=== PATIENT | male | born 1965 | race Caucasian/White ===

== ENCOUNTER 2017-04-08 11:53 | Observation (INO) | payer OTHER ==
--- NOTE | 2017-04-08 12:15 | C.PDOC ---
History Of Present Illness 51-year-old male, presents to the emergency department via EMS with complaints of public intoxication. Time Seen by Provider: 04/08/17 12:03 Chief Complaint (Nursing): Substance Abuse History Per: EMS History/Exam Limitations: intoxication Past Medical History Reviewed: Historical Data, Nursing Documentation, Vital Signs Vital Signs: Last Vital Signs Temp 98.6 F 04/08/17 14:40 Pulse 108 H 04/08/17 14:40 Resp 18 04/08/17 14:40 BP 137/91 H 04/08/17 14:40 Pulse Ox 97 04/08/17 14:40 Family History: States: No Known Family Hx - Social History Hx Tobacco Use: No Hx Alcohol Use: Yes Hx Substance Use: No - Immunization History Hx Tetanus Toxoid Vaccination: No Hx Influenza Vaccination: No Hx Pneumococcal Vaccination: No Review Of Systems Review Of Systems: ROS cannot be obtained secondary to pt's inabilty to answer questions. (intox) Gastrointestinal: Negative for: Vomiting Psych: Negative for: Psychosis, Suicidal ideation, Withdrawal Physical Exam - Physical Exam Appears: Non-toxic, No Acute Distress, Other (CALM. NO ACUTE SIGNS OR SX OF WITHDRAWAL. PT IS INTOXICATED. ETOH ON BREATH) Neck: Normal ROM Chest: Symmetrical Respiratory: No Accessory Muscle Use Extremity: Normal ROM Gait: Unsteady (ETOH) ED Course And Treatment O2 Sat by Pulse Oximetry: 108 ED OBSERVATION Discharge: Yes Date of observation admission: 04/08/17 Time of observation admission: 12:00 - Observation admission statement Patient is being placed in observation because:: INTOX - Goals of Observation Goals of observation are:: SOBRIETY - Progress Note Progress Note: 04/08/17 16:41 CLEAR SPEECH AND THOUGHT, STEADY GAIT. N OS/S ACUTE INTOX Disposition Counseled Patient/Family Regarding: Diagnosis, Need For Followup - Disposition Disposition: HOME/ ROUTINE Disposition Time: 16:41 Condition: IMPROVED - Clinical Impression Clinical Impression: Alcohol intoxication - Scribe Statement The provider has reviewed the documentation as recorded by the Renato Gilmore All medical record entries made by the Scribe were at my direction and personally dictated by me. I have reviewed the chart and agree that the record accurately reflects my personal performance of the history, physical exam, medical decision making, and the department course for this patient. I have also personally directed, reviewed, and agree with the discharge instructions and disposition.
[2017-04-08 14:41] VITALS: RESP 18
[2017-04-08 16:41] VITALS: O2SAT 108
[2017-04-08 16:47] VITALS: PULSE 78; TEMP 97.8
[2017-04-08 16:48] VITALS: BP 130/94
== END 2017-04-08 16:41 | disposition home or self-care (01) ==
LOC: C.ER 11:53 → C.9OBSV 12:00
PROVIDERS: ADMIT Emergency Medicine; ATTEND Emergency Medicine
DX: F10.229 Alcohol dependence with intoxication, unspecified (principal)
CPT/HCPCS: 99285; G0378

== ENCOUNTER 2018-01-23 13:48 | Emergency (ER) | payer SELFPAY ==
--- NOTE | 2018-01-23 19:45 | C.PDOC ---
History Of Present Illness 52 year old male is brought to the ED by EMS for evaluation of alcohol intoxication for an unknown duration. Patient admits to heavy alcohol consumption today. Patient admits he usually drinks an unknown quantity of beer on a daily basis and is unable to recall when he had his last beer today. Patient has never undergone detox and expresses interest today. He has no acute complaints at this time. Chief Complaint (Nursing): Substance Abuse History Per: Patient, EMS History/Exam Limitations: intoxication Onset/Duration Of Symptoms: Hrs Current Symptoms Are (Timing): Still Present Suicide/Self Injury Attempted (Context): None Modifying Factor(s): Alcohol Associated Symptoms: denies: Suicidal Thoughts, Suicidal Plan Involuntary Hold By: None Recent travel outside of the [place]: No Additional History Per: Patient Past Medical History Reviewed: Historical Data, Nursing Documentation, Vital Signs Vital Signs: Last Vital Signs Temp 98.3 F 01/23/18 19:57 Pulse 92 H 01/23/18 19:57 Resp 18 01/23/18 19:57 BP 142/89 01/23/18 19:57 Pulse Ox 99 01/23/18 23:04 - Medical History PMH: No Chronic Diseases Surgical History: No Surg Hx Family History: States: Unknown Family Hx - Social History Hx Tobacco Use: No Hx Alcohol Use: Yes Hx Substance Use: No - Immunization History Hx Tetanus Toxoid Vaccination: No Hx Influenza Vaccination: No Hx Pneumococcal Vaccination: No Review Of Systems Psych: Positive for: Other (alcohol intoxication ) Physical Exam - Physical Exam Appears: Non-toxic, No Acute Distress, Other (poor hygiene) Skin: Normal Color, Warm, Dry, Other (ruby complexion) Head: Atraumatic, Normacephalic Eye(s): bilateral: Normal Inspection Oral Mucosa: Moist, Other (alcohol on breath ) Neck: Supple Chest: Symmetrical, No Deformity, No Tenderness Cardiovascular: Rhythm Regular, No Murmur Respiratory: Normal Breath Sounds, No Rales, No Rhonchi, No Wheezing Extremity: Normal ROM, Capillary Refill (less than 2 seconds ) Neurological/Psych: No Normal Speech (slurred), No Other (responsive to verbal commands ) ED Course And Treatment O2 Sat by Pulse Oximetry: 99 (on RA) Pulse Ox Interpretation: Normal Medical Decision Making Medical Decision Making: Progress: Patient is informed about the unavailability of detox beds at this time. On re-evaluation, patient is able to stand and ambulate down the ER douglas with a steady gait. Patient is clinically sober and is stable for discharge. long term care social worker has provided patient with a list of detox centers for further inquiry. Advised to return to the ED if symptoms worsen. Disposition - Disposition Referrals: Alcoholics Anonymous [Outside] Disposition: HOME/ ROUTINE Disposition Time: 05:55 Condition: GOOD Instructions: Alcohol Use - When Is Drinking a Problem? Forms: Gen Discharge Inst Yi, [facility] (Armenian) Print Language: ISRAELI - Clinical Impression Clinical Impression: Alcohol intoxication - Scribe Statement The provider has reviewed the documentation as recorded by the Scribe (Shavonne Hernandez) Provider Attestation: All medical record entries made by the Scribe were at my direction and personally dictated by me. I have reviewed the chart and agree that the record accurately reflects my personal performance of the history, physical exam, medical decision making, and the department course for this patient. I have also personally directed, reviewed, and agree with the discharge instructions and disposition.
[2018-01-23 19:57] VITALS: BP 142/89; PULSE 92; RESP 18; TEMP 98.3
[2018-01-23 20:58] VITALS: O2SAT 99
== END 2018-01-23 19:57 | disposition home or self-care (01) ==
LOC: C.ER 13:48
DX: F10.129 Alcohol abuse with intoxication, unspecified (principal); Y90.9 Presence of alcohol in blood, level not specified

== ENCOUNTER 2018-06-26 19:52 | Emergency (ER) | payer SELFPAY ==
[2018-06-26 20:00] VITALS: TEMP 99.2; O2SAT 96
--- NOTE | 2018-06-26 21:16 | C.PDOC ---
History Of Present Illness 52 y/o male brought in by EMS [place]. Patient admits to alcohol use today. Denies any somatic complaints. No further history obtained due to patients intoxication. Time Seen by Provider: 06/26/18 20:00 Chief Complaint (Nursing): Substance Abuse History Per: Patient History/Exam Limitations: intoxication Onset/Duration Of Symptoms: Hrs Current Symptoms Are (Timing): Still Present Modifying Factor(s): Alcohol Involuntary Hold By: None Additional History Per: EMS Past Medical History Reviewed: Historical Data, Nursing Documentation, Vital Signs Vital Signs: Last Vital Signs Temp 99.2 F 06/26/18 20:03 Pulse 103 H 06/26/18 20:03 Resp 20 06/26/18 20:03 BP 111/65 06/26/18 20:03 Pulse Ox 96 06/27/18 00:03 - Medical History PMH: Denies: Diabetes, Hepatitis, HIV, HTN, Seizures, Sexually Transmitted Disease Family History: States: Unknown Family Hx - Social History Hx Tobacco Use: No Hx Alcohol Use: Yes Hx Substance Use: No - Immunization History Hx Tetanus Toxoid Vaccination: No Hx Influenza Vaccination: No Hx Pneumococcal Vaccination: No Review Of Systems Review Of Systems: ROS cannot be obtained secondary to pt's inabilty to answer questions. Physical Exam - Physical Exam Appears: Non-toxic, No Acute Distress, Unkempt, Other (Smells of alcohol) Skin: Normal Color, Warm, Dry Head: Atraumatic, Normacephalic Eye(s): bilateral: PERRL, EOMI, Other (Bloodshot eyes) Neck: Normal ROM, Supple Chest: Symmetrical Cardiovascular: Rhythm Regular, No Murmur Respiratory: Normal Breath Sounds, No Rales, No Rhonchi, No Wheezing Gastrointestinal/Abdominal: Soft, No Tenderness, No Distention Extremity: Normal ROM (Moving extremities spontaneously x4), Capillary Refill ( less than 2 sec), No Swelling, Other (Splint in place to right forearm) Pulses: Left Radial: Normal, Right Radial: Normal Neurological/Psych: Other (Slurred speech) ED Course And Treatment O2 Sat by Pulse Oximetry: 96 (RA) Pulse Ox Interpretation: Normal Medical Decision Making Medical Decision Making: Initial Impression: ETOH Intoxication Initial Plan: --Accucheck --CT Head w/o contrast 12:03AM Patient ambulating around the ED. He is refusing CT. He has no signs of trauma. Will continue to monitor. 01:[address] Armendariz to reevaluate when sober Disposition - Disposition Disposition Time: 01:00 Condition: FAIR Forms: [facility] (Zimbabwean) - Clinical Impression Clinical Impression: Alcohol intoxication - Scribe Statement The provider has reviewed the documentation as recorded by the Scribe (Janna Moy) Provider Attestation: All medical record entries made by the Scribe were at my direction and personally dictated by me. I have reviewed the chart and agree that the record accurately reflects my personal performance of the history, physical exam, medical decision making, and the department course for this patient. I have also personally directed, reviewed, and agree with the discharge instructions and disposition.
[2018-06-27 04:11] VITALS: BP 110/60; PULSE 80; RESP 14
== END 2018-06-27 04:57 | disposition home or self-care (01) ==
LOC: C.ER 19:52
DX: F10.129 Alcohol abuse with intoxication, unspecified (principal); Y90.9 Presence of alcohol in blood, level not specified

== ENCOUNTER 2018-06-28 18:49 | Emergency (ER) | payer SELFPAY ==
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
[2018-06-28 20:44] VITALS: BP 105/64; PULSE 89; RESP 16; TEMP 98.2
[2018-06-28 20:48] VITALS: O2SAT 98
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
== END 2018-06-28 20:44 | disposition home or self-care (01) ==
LOC: C.ER 18:49
DX: F10.10 Alcohol abuse, uncomplicated (principal); S52.571A Other intraarticular fracture of lower end of right radius, initial encounter for closed fracture; Y04.0XXA Assault by unarmed brawl or fight, initial encounter

== ENCOUNTER 2018-08-08 16:45 | Emergency (ER) | payer OTHER ==
--- NOTE | 2018-08-08 17:05 | C.PDOC ---
History Of Present Illness 53-year-old male is brought to the ED by ambulance for evaluation of acute alcohol intoxication. Patient admits to drinking earlier today. He denies any recent trauma/injuries, suicidal/homicidal ideation, and has no physical complaints at this time. Chief Complaint (Nursing): Substance Abuse History Per: Patient, EMS History/Exam Limitations: intoxication Onset/Duration Of Symptoms: Hrs Current Symptoms Are (Timing): Still Present Suicide/Self Injury Attempted (Context): None Modifying Factor(s): Alcohol Associated Symptoms: denies: Suicidal Thoughts, Suicidal Plan Involuntary Hold By: None Recent travel outside of the [place]: No Additional History Per: Patient, EMS Past Medical History Reviewed: Historical Data, Nursing Documentation, Vital Signs Vital Signs: Last Vital Signs Temp 98.7 F 08/08/18 16:58 Pulse 85 08/08/18 16:58 Resp 18 08/08/18 16:58 BP 123/77 08/08/18 16:58 Pulse Ox 98 08/08/18 16:58 - Medical History PMH: No Chronic Diseases Denies: Diabetes, Hepatitis, HIV, HTN, Seizures, Sexually Transmitted Disease Surgical History: No Surg Hx Family History: States: Unknown Family Hx - Social History Hx Tobacco Use: No Hx Alcohol Use: Yes Hx Substance Use: No - Immunization History Hx Tetanus Toxoid Vaccination: No Hx Influenza Vaccination: No Hx Pneumococcal Vaccination: No Review Of Systems Psych: Positive for: Other (EtOH intoxication ). Negative for: Suicidal ideation Physical Exam - Physical Exam Appears: Non-toxic, No Acute Distress, Other (visibly intoxicated ) Skin: Normal Color, Warm, Dry Head: Atraumatic, Normacephalic Eye(s): bilateral: Normal Inspection Oral Mucosa: Moist, Other (alcohol on breath ) Neck: Supple Chest: Symmetrical, No Deformity Cardiovascular: Rhythm Regular Respiratory: No Accessory Muscle Use Extremity: Normal ROM Neurological/Psych: Other (arousable to touch and verbal stimuli ) ED Course And Treatment O2 Sat by Pulse Oximetry: 98 (on RA) Pulse Ox Interpretation: Normal Medical Decision Making Medical Decision Making: Impression: 53 year old male with acute alcohol intoxication Progress: Labs ordered and reviewed. Disposition - Disposition Referrals: [facility] [Outside] [facility] [Outside] Disposition: HOME/ ROUTINE Disposition Time: 18:30 Condition: IMPROVED Additional Instructions: MACIEJ ESPANA, thank you for letting us take care of you today. The emergency medical care you received today was directed at your acute symptoms. If you were prescribed any medication, please fill it and take as directed. It may take several days for your symptoms to resolve. Return to the Emergency Department if your symptoms worsen, do not improve, or if you have any other problems. Please contact your doctor or call one of the physicians/clinics you have been referred to that are listed on the Patient Visit Information form that is included in your discharge packet. Bring any paperwork you were given at discharge with you along with any medications you are taking to your follow up visit. Our treatment cannot replace ongoing medical care by a primary care provider outside of the emergency department. Thank you for allowing the [facility] team to be part of your care today. Do not drink too much alcohol at one time. Follow up with the clinic this week for outpatient care. Instructions: Alcohol Abuse and Alcoholism (DC) Forms: [facility] (Belizean) - Clinical Impression Clinical Impression: Alcohol abuse - Scribe Statement The provider has reviewed the documentation as recorded by the Scribe (Shavonne Hernandez) Provider Attestation: All medical record entries made by the Scribe were at my direction and personally dictated by me. I have reviewed the chart and agree that the record accurately reflects my personal performance of the history, physical exam, medical decision making, and the department course for this patient. I have also personally directed, reviewed, and agree with the discharge instructions and disposition.
[2018-08-08 19:11] VITALS: BP 139/66; PULSE 93; RESP 16; TEMP 98.9; O2SAT 96
== END 2018-08-08 19:06 | disposition home or self-care (01) ==
LOC: C.ER 16:45
DX: F10.10 Alcohol abuse, uncomplicated (principal)